=== PATIENT | male | born 1980 | race American Indian/Alaskan Native ===

== ENCOUNTER 2017-12-12 20:28 | Emergency (ER) | payer MEDICAID, OTHER ==
[2017-12-12] MEDS ORDERED: Sodium Chloride 0.9% 1,000 ML IV ONE (20:39)
[2017-12-12 21:04] LABS: ANION GAP 11.7; CHLORIDE,CL 98 mmol/L (101-111); SODIUM,NA 129 mmol/L (135-145)
--- NOTE | 2017-12-12 21:06 | EDM.PDOC ---
ED HPI GENERAL MEDICAL PROBLEM - General Chief Complaint: General Stated Complaint: AMBULANCE Time Seen by Provider: 12/12/17 20:40 Source of Information: Reports: Patient, EMS History Limitations: Reports: No Limitations - History of Present Illness INITIAL COMMENTS - FREE TEXT/NARRATIVE: ED via [facility] with c/o not feeling well. No cough, lower body aches. No vomiting. last BM yesterday. Moving over to ED cart c/o lower abdominal pain greater on right, initial report that just started later reporting has had pain since am. Stomach feels bigger than usual. Difficulty urinating this am, denied burning or discharge. Denies drug or ETOH hx. Lower Abdomen Pain Score (Numeric/FACES): 8 - Related Data Allergies Allergy/AdvReac Type Severity Reaction Status Date / Time No Known Allergies Allergy Verified 12/12/17 20:32 Home Meds: Home Meds . [No Known Home Meds] 12/12/17 [History] Past Medical History Cardiovascular History: Reports: Hypertension Social & Family History - Family History Family Medical History: Noncontributory - Tobacco Use Smoking Status *Q: Current Every Day Smoker Years of Tobacco use: 15 Packs/Tins Daily: 1 - Caffeine Use Caffeine Use: Reports: Coffee, Energy Drinks, Soda, Tea - Recreational Drug Use Recreational Drug Use: No ED ROS GENERAL - Review of Systems Review Of Systems: ROS reveals no pertinent complaints other than HPI. ED EXAM, GENERAL - Physical Exam Exam: See Below Exam Limited By: No Limitations General Appearance: Alert, Mild Distress Eye Exam: Bilateral Eye: EOMI Ears: Normal External Exam Nose: Normal Inspection Throat/Mouth: Normal Inspection Head: Atraumatic, Normocephalic Neck: Normal Inspection Respiratory/Chest: No Respiratory Distress, Lungs Clear, Normal Breath Sounds Cardiovascular: Normal Peripheral Pulses, Regular Rate, Rhythm GI/Abdominal: Distended, Tender ( generalized, greater on right lower with palpation), Abnormal Bowel Sounds (hypoactive). No: Guarding, Rebound Back Exam: Full Range of Motion Neurological: Alert, Oriented, Normal Reflexes Psychiatric: Flat Affect Skin Exam: Warm, Other (edemal non pitting lower extremities, petechial rash anterio lower legs, abrasion left anterior mid tee. vertical line left upper arm, track appearnace.). No: Normal Color Course - Vital Signs Last Recorded V/S: Last Vital Signs Temp 101.1 F H 12/12/17 20:38 Pulse 105 H 12/12/17 20:38 Resp 33 H 12/12/17 20:38 BP 122/73 12/12/17 20:38 Pulse Ox 95 12/12/17 20:38 - Orders/Labs/Meds Labs: Laboratory Tests 12/12/17 12/12/17 12/12/17 Range/Units 20:35 20:35 20:35 WBC 14.7 H (5.0-10.0) 10^3/uL RBC 4.86 (4.6-6.2) 10^6/uL Hgb 14.4 (14.0-18.0) g/dL Hct 43.2 (40.0-54.0) % MCV 88.9 (80-100) fL MCH 29.6 (27.0-34.0) pg MCHC 33.3 (33.0-35.0) g/dL Plt Count 129 L (150-450) 10^3/uL Neut % (Auto) 90.8 H (42.2-75.2) % Lymph % (Auto) 2.3 L (20.5-50.1) % [place] % (Auto) 6.7 (2-8) % Eos % (Auto) 0.1 L (1.0-3.0) % Baso % (Auto) 0.1 (0.0-1.0) % Sodium 129 L (135-145) mmol/L Potassium 3.7 (3.6-5.0) mmol/L Chloride 98 L (101-111) mmol/L Carbon Dioxide 23.0 (21.0-31.0) mmol/L Anion Gap 11.7 BUN 16 (7-18) mg/dL Creatinine 1.1 (0.6-1.3) mg/dL Est Cr Clr Drug Dosing 96.98 mL/min Estimated GFR (MDRD) > 60 BUN/Creatinine Ratio 14.54 Glucose 123 H (74-105) mg/dL POC Glucose (70-105) mg/dl Lactic Acid 1.5 (0.5-2.2) mmol/L Calcium 8.3 L (8.4-10.2) mg/dl Total Bilirubin 1.2 H (0.2-1.0) mg/dL AST 29 (10-42) IU/L ALT 38 (10-60) IU/L Alkaline Phosphatase 73 (42-121) IU/L Total Protein 7.4 (6.7-8.2) g/dl Albumin 3.7 (3.2-5.5) g/dl Globulin 3.7 Albumin/Globulin Ratio 1.00 Amylase 36 (28-100) U/L Lipase 17 L (22-51) U/L Urine Color (YELLOW) Urine Appearance (CLEAR) Urine pH (5.0-9.0) Ur Specific [place] (1.005-1.030) Urine Protein (NEGATIVE) Urine Glucose (UA) (NEGATIVE) Urine Ketones (NEGATIVE) Urine Occult Blood (NEGATIVE) Urine Nitrite (NEGATIVE) Urine Bilirubin (NEGATIVE) Urine Urobilinogen (0.2-1.0) mg/dL Ur Leukocyte Esterase (NEGATIVE) Urine RBC /HPF Urine WBC (0-5/HPF) /HPF Ur Epithelial Cells /HPF Urine Bacteria (0-FEW/HPF) /HPF Urine Opiates Screen (NEGATIVE) Ur Oxycodone Screen (NEGATIVE) Urine Methadone Screen (NEGATIVE) Ur Barbiturates Screen (NEGATIVE) U Tricyclic Antidepress (NEGATIVE) Ur Phencyclidine Scrn (NEGATIVE) Ur Amphetamine Screen (NEGATIVE) U Methamphetamines Scrn (NEGATIVE) Urine MDMA Screen (NEGATIVE) U Benzodiazepines Scrn (NEGATIVE) Urine Cocaine Screen (NEGATIVE) U Marijuana (THC) Screen (NEGATIVE) Ethyl Alcohol < 5 mg/dL 12/12/17 12/12/17 12/12/17 Range/Units 20:57 22:14 22:14 WBC (5.0-10.0) 10^3/uL RBC (4.6-6.2) 10^6/uL Hgb (14.0-18.0) g/dL Hct (40.0-54.0) % MCV (80-100) fL MCH (27.0-34.0) pg MCHC (33.0-35.0) g/dL Plt Count (150-450) 10^3/uL Neut % (Auto) (42.2-75.2) % Lymph % (Auto) (20.5-50.1) % [place] % (Auto) (2-8) % Eos % (Auto) (1.0-3.0) % Baso % (Auto) (0.0-1.0) % Sodium (135-145) mmol/L Potassium (3.6-5.0) mmol/L Chloride (101-111) mmol/L Carbon Dioxide (21.0-31.0) mmol/L Anion Gap BUN (7-18) mg/dL Creatinine (0.6-1.3) mg/dL Est Cr Clr Drug Dosing mL/min Estimated GFR (MDRD) BUN/Creatinine Ratio Glucose (74-105) mg/dL POC Glucose 118 H (70-105) mg/dl Lactic Acid (0.5-2.2) mmol/L Calcium (8.4-10.2) mg/dl Total Bilirubin (0.2-1.0) mg/dL AST (10-42) IU/L ALT (10-60) IU/L Alkaline Phosphatase (42-121) IU/L Total Protein (6.7-8.2) g/dl Albumin (3.2-5.5) g/dl Globulin Albumin/Globulin Ratio Amylase (28-100) U/L Lipase (22-51) U/L Urine Color Yellow (YELLOW) Urine Appearance Clear (CLEAR) Urine pH 7.0 (5.0-9.0) Ur Specific [place] 1.015 (1.005-1.030) Urine Protein Negative (NEGATIVE) Urine Glucose (UA) 100 H (NEGATIVE) Urine Ketones Negative (NEGATIVE) Urine Occult Blood Negative (NEGATIVE) Urine Nitrite Negative (NEGATIVE) Urine Bilirubin Negative (NEGATIVE) Urine Urobilinogen 2.0 H (0.2-1.0) mg/dL Ur Leukocyte Esterase Negative (NEGATIVE) Urine RBC 0-5 /HPF Urine WBC 0-5 (0-5/HPF) /HPF Ur Epithelial Cells Rare /HPF Urine Bacteria Rare (0-FEW/HPF) /HPF Urine Opiates Screen Negative (NEGATIVE) Ur Oxycodone Screen Negative (NEGATIVE) Urine Methadone Screen Negative (NEGATIVE) Ur Barbiturates Screen Negative (NEGATIVE) U Tricyclic Antidepress Negative (NEGATIVE) Ur Phencyclidine Scrn Negative (NEGATIVE) Ur Amphetamine Screen Positive H (NEGATIVE) U Methamphetamines Scrn Positive H (NEGATIVE) Urine MDMA Screen Positive H (NEGATIVE) U Benzodiazepines Scrn Negative (NEGATIVE) Urine Cocaine Screen Negative (NEGATIVE) U Marijuana (THC) Screen Negative (NEGATIVE) Ethyl Alcohol mg/dL Meds: Medications Discontinued Medications Generic Name Dose Route Start Last Admin Trade Name Freq PRN Reason Stop Dose Admin Acetaminophen 650 mg 12/12/17 21:10 12/12/17 21:17 Tylenol PO 12/12/17 21:11 650 mg NOW ONE Administration Sodium Chloride 1,000 mls @ 999 mls/hr 12/12/17 20:39 12/12/17 21:01 Normal Saline IV 12/12/17 21:39 999 mls/hr .BOLUS ONE Administration Iopamidol 100 ml 12/12/17 21:34 12/12/17 21:40 Isovue-300 (61%) IVPUSH 12/12/17 21:35 100 ml ONETIME ONE Administration - Re-Assessments/Exams Free Text/Narrative Re-Assessment/Exam: 12/12/17 22:29 States feeling better and is leaving, stated did not want to come in [facility], but daughter made him. Refused to await results of testing. Signed papers and left AMA Departure - Departure Time of Disposition: 22:30 Disposition: Against Medical Advice 07 Condition: Undetermined Clinical Impression: Positive urine drug screen Abdominal pain Qualifiers: Abdominal location: generalized Qualified Code(s): R10.84 - Generalized abdominal pain - Discharge Information Forms: ED Department Discharge
[2017-12-12] MEDS ORDERED: Acetaminophen 325 MG Tab PO ONE (21:10)
[2017-12-12] MEDS ORDERED: Iopamidol 612 MG/ML 100 ML Bottle IVPUSH ONE (21:34)
== END 2017-12-12 22:29 | disposition left against medical advice (07) ==
LOC: DL.ED 20:28
DX: R10.31 Right lower quadrant pain (principal); F17.210 Nicotine dependence, cigarettes, uncomplicated
CPT/HCPCS: 36415; 71045; 74177; 80053; 80305; 81001; 82150; 82962; 83605; 83690; 85025; 87040; 93005; 99285; A9270; G0480; J7030; Q9967